=== PATIENT | male | born 1990 | race Two or more races ===

== ENCOUNTER 2021-03-13 06:12 | Inpatient (IN) | payer MEDICAID, OTHER ==
[~2021-03-13] VITALS: Ht 165.1 cm; Wt 88.2 kg
[2021-03-13 06:47] LABS: BASOPHILS % (AUTO) 0.5 % (0.0-2.0); EOSINOPHILS % (AUTO) 5.8 % (1.0-6.0); HEMOGLOBIN 14.7 g/dL (13.5-17.5); LYMPHOCYTES # (AUTO) 1.2 K/uL (1.0-4.8); MEAN CORPUSCULAR HGB CONC 33.3 G/dL (31.0-37.0); MEAN CORPUSCULAR VOLUME 90 fL (80-100); MONOCYTES # (AUTO) 0.7 K/uL (0.1-1.0); NEUTROPHILS % (AUTO) 71.7 % (40.0-70.0); PLATELET COUNT (AUTO) 294 K/uL (150-450); RED BLOOD CELL COUNT(AUTO) 4.89 MIL/uL (4.50-5.90); RED CELL DISTRIBUTION WIDTH 13.6 % (11.5-14.5)
[2021-03-13 06:55] LABS: ANION GAP 6 mmol/L (8-16); CALCIUM, TOTAL 8.5 mg/dL (8.8-10.5); CARBON DIOXIDE 30 mmol/L (22-29); CHLORIDE 104 mmol/L (98-107); CREATININE 0.83 mg/dL (0.60-1.30); GLOMERULAR FILTR. RATE CALC > 60 mL/min (>60); GLUCOSE,RANDOM 103 mg/dL (70-110); POTASSIUM 4.4 mmol/L (3.5-5.1); SODIUM SERUM 140 mmol/L (136-145); UREA NITROGEN, BLOOD 12 mg/dL (7-18)
[2021-03-13 06:58] LABS: LITHIUM < 0.20 mmol/L (0.60-1.20)
[2021-03-13 06:59] LABS: COVID AG,FIA SOURCE NASOPHARYNGEAL
[2021-03-13 07:04] LABS: SALICYLATE < 0.2 mg/dL (2.8-20.0)
[2021-03-13 07:10] LABS: ALANINE AMINOTRANSFERASE 49 U/L (12-78); ALBUMIN 4.1 g/dL (3.4-5.0); ALKALINE PHOSPHATASE 94 U/L (46-116); ASPARTATE AMINOTRANSFERASE 24 U/L (15-37); BILIRUBIN,TOTAL 0.4 mg/dL (0.1-1.0); FREE T4 (FREE THYROXINE) 1.19 ng/dL (0.76-1.46); THYROID STIMULATING HORMONE 1.13 uIU/mL (0.36-3.74); TOTAL PROTEIN, SERUM 7.8 g/dL (6.4-8.2)
[2021-03-13 07:11] LABS: AMPHET/METH SCREEN,URINE NEGATIVE (NEGATIVE); BARBITURATE SCREEN, URINE NEGATIVE (NEGATIVE); BENZODIAZEPINES SCREEN,URINE NEGATIVE (NEGATIVE); CANNABINOID SCREEN,URINE POSITIVE (NEGATIVE); COCAINE SCREEN,URINE NEGATIVE (NEGATIVE); METHADONE SCREEN, URINE NEGATIVE (NEGATIVE); OPIATE SCREEN,URINE NEGATIVE (NEGATIVE)
[2021-03-13 07:13] LABS: PHENCYCLIDINE SCREEN,URINE NEGATIVE (NEGATIVE)
[2021-03-13 07:13] LABS: ACETAMINOPHEN < 2 mcg/mL (10-30); VALPROIC ACID < 3 mcg/mL (50-100)
[2021-03-13] MEDS ORDERED: LORazepam 2 MG/ML VIAL IM ONE (07:45)
[2021-03-13] MEDS ORDERED: HALOPERIDOL LACTATE 5 MG/ML VIAL IM ONE (07:45)
[2021-03-13] MEDS ORDERED: DiphenhydrAMINE HCL 50 MG/ML VIAL IM ONE (07:45)
[2021-03-13 12:38] VITALS: BP 110/63
[2021-03-13 16:00] VITALS: BP 115/82
[2021-03-13 16:18] VITALS: BP 112/64
[2021-03-13] MEDS: OLANZapine 5 MG TABLET PO SCH (21:39)
[2021-03-14 04:38] VITALS: BP 132/86
[2021-03-14] MEDS ORDERED: DOCUSATE SODIUM 100 MG CAPSULE PO PRN (07:30)
[2021-03-14] MEDS ORDERED: ONDANSETRON HCL 4 MG TABLET PO PRN (07:30)
[2021-03-14] MEDS ORDERED: LOPERAMIDE HCL 2 MG CAPSULE PO PRN (07:30)
[2021-03-14] MEDS ORDERED: GuaiFENesin/D-METHORPHAN [SUGAR-FREE] 200-20MG/10 ML SYRUP UDCUP PO PRN (07:30)
[2021-03-14] MEDS ORDERED: CloNIDine HCL 0.1 MG TABLET PO PRN (07:30)
[2021-03-14] MEDS ORDERED: NICOTINE 14 MG/24 HOUR PATCH TD PRN (07:30)
[2021-03-14] MEDS ORDERED: PETROLATUM,WHITE 28 GM JELLY TP PRN (07:30)
[2021-03-14] MEDS ORDERED: MAG HYDROX/AL HYDROX/SIMETH ES 30 ML SUSPENSION UDCUP PO PRN (07:30)
[2021-03-14] MEDS ORDERED: ALBUTEROL SULFATE HFA 90 MCG/PUFF 8 GM INHALER IH PRN (07:30)
[2021-03-14] MEDS ORDERED: MAGNESIUM HYDROXIDE SUSPENSION 30 ML UDCUP PO PRN (07:30)
[2021-03-14 08:23] LABS: CHOL/HDL RATIO 3.4 (4.2-7.3)
[2021-03-14 08:43] VITALS: BP 123/78
[2021-03-14] MEDS: OLANZapine 5 MG TABLET PO SCH ×3 (08:46→20:40)
[2021-03-14] MEDS: ACETAMINOPHEN 325 MG TABLET PO PRN (10:10)
[2021-03-14] MEDS: LORazepam 2 MG TABLET PO PRN (15:55)
[2021-03-14] MEDS: HALOPERIDOL 5 MG TABLET PO PRN (15:55)
[2021-03-14 16:05] VITALS: BP 119/74
[2021-03-14] MEDS: IBUPROFEN 400 MG TABLET PO PRN (16:23)
[2021-03-15 01:07] VITALS: BP 112/74
[2021-03-15] MEDS: IBUPROFEN 400 MG TABLET PO PRN ×3 (03:18→20:20)
[2021-03-15] MEDS: LORazepam 2 MG TABLET PO PRN ×3 (03:18→22:45)
[2021-03-15] MEDS: ACETAMINOPHEN 325 MG TABLET PO PRN (08:00)
[2021-03-15] MEDS: OLANZapine 5 MG TABLET PO SCH ×2 (08:00→20:20)
[2021-03-15 08:30] VITALS: BP 131/88
[2021-03-15 16:27] VITALS: BP 128/72
[2021-03-15] MEDS: ZOLPIDEM TARTRATE 10 MG TABLET PO PRN (20:21)
[2021-03-16 00:33] VITALS: BP 129/80
[2021-03-16 08:13] VITALS: BP 114/66
[2021-03-16] MEDS: OLANZapine 5 MG TABLET PO SCH (08:34)
[2021-03-16] MEDS: LORazepam 2 MG TABLET PO PRN ×3 (09:05→18:03)
[2021-03-16] MEDS: HALOPERIDOL 5 MG TABLET PO PRN ×2 (13:44→18:03)
[2021-03-16 16:18] VITALS: BP 104/62
[2021-03-16] MEDS: ZOLPIDEM TARTRATE 10 MG TABLET PO PRN (20:43)
[2021-03-17] MEDS: LORazepam 2 MG TABLET PO PRN ×3 (02:55→13:21)
[2021-03-17 06:06] VITALS: BP 129/78
[2021-03-17] MEDS ORDERED: ARIPiprazole 10 MG TABLET PO SCH (09:00)
[2021-03-17 09:26] VITALS: BP 117/74
[2021-03-17 16:31] VITALS: BP 121/72
== END 2021-03-17 17:30 | disposition home or self-care (01) | DRG 751 ==
LOC: EMS 06:12 → B3A 07:44
DX: F29 Unspecified psychosis not due to a substance or known physiological condition (principal); E83.51 Hypocalcemia; F25.0 Schizoaffective disorder, bipolar type; E66.9 Obesity, unspecified; Z20.822 Contact with and (suspected) exposure to COVID-19; F12.10 Cannabis abuse, uncomplicated; Z68.32 Body mass index [BMI] 32.0-32.9, adult; Z91.19 Patient's noncompliance with other medical treatment and regimen
CPT/HCPCS: 80053; 80061; 80164; 80178; 84439; 84443; 85025; 99285; G0480; G0481; J1200; J1630; J2060